=== PATIENT | male | born 1965 | race African-American/Black ===

== ENCOUNTER 2017-09-21 13:53 | Emergency (ER) | payer OTHER ==
[~2017-09-21] VITALS: Ht 182.9 cm; Wt 86.2 kg
[~2017-09-21 13:53] MED LIST: DENIES; NAPROSYN500 MG PO; NORCO 5-325 TA1 EACH PO
[2017-09-21] MEDS ORDERED: TRAMADOL 50 MG50 MG PO (15:31)
[2017-09-21] MEDS ORDERED: MOBIC7.5 MG PO (15:31)
[2017-09-21 15:37] VITALS: BP 126/85
== END 2017-09-21 15:42 | disposition home or self-care (01) ==
LOC: ER 13:53
DX: R07.89 Other chest pain (principal); F10.99 Alcohol use, unspecified with unspecified alcohol-induced disorder